=== PATIENT | male | born 2000 | race Hispanic/Latino ===

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

== ENCOUNTER 2019-08-13 21:30 | Emergency (ER) | payer BC ==
[~2019-08-13] VITALS: Ht 180.3 cm; Wt 90.9 kg
[2019-08-13 22:07] LABS: HEMATOCRIT 47.9 % (39.0-50.0); HEMOGLOBIN 16.7 g/dl (14.0-18.0); IMMATURE GRANULOCYTES 0.5 % (0.0-5.0); MEAN CELL VOLUME 89.5 fL CALC (80.0-100.0); MEAN CORPUSCULAR HGB 31.2 pG CALC (26.0-32.0); MEAN CORPUSCULAR HGB CONC 34.9 g/L CALC (32.0-36.0); NEUT# 6.23 thou/uL (1.82-7.42); RED BLOOD COUNT 5.35 mill/uL (4.70-6.10); RED CELL DISTRI WIDTH 12.2 % (11.5-15.5)
[2019-08-13 22:19] LABS: ALBUMIN 4.8 g/dL (3.2-5.0); ALKALINE PHOSPHATASE 126 u/l (38-126); ANION GAP 18 (6-22 (CALC)); BILIRUBIN, TOTAL 1.5 mg/dL (0.0-1.4); BUN 21 mg/dL (8-21); BUN/CREATININE RATIO 21 (12-20 (CALC)); CARBON DIOXIDE 23 mmol/l (22-30); CHLORIDE 101 mmol/l (95-108); GFR > 60 ML/MIN (>=60 (CALC)); GFR FOR AFR.AMER. > 60 ML/MIN (>=60 (CALC)); POTASSIUM 3.8 mmol/l (3.5-5.1); SGOT/AST 41 u/l (17-59); SODIUM 138 mmol/l (137-146); TOTAL PROTEIN 8.6 g/dL (6.3-8.2)
[2019-08-13 23:27] LABS: C. DIFFICILE TOXIN A&B NEGATIVE (NEGATIVE)
[2019-08-14] MEDS ORDERED: LOMOTIL2.5 MG PO (00:09)
[2019-08-14] MEDS ORDERED: PHENERGAN25 MG/TAB PO (00:09)
[2019-08-14 00:20] VITALS: BP 130/66
== END 2019-08-14 00:25 | disposition home or self-care (01) | DRG 392 ==
LOC: ED 21:30
PROVIDERS: Family Medicine
DX: A08.4 Viral intestinal infection, unspecified (principal)

== ENCOUNTER 2020-06-03 06:12 | Emergency (ER) | payer BC ==
[~2020-06-03] VITALS: Ht 180.3 cm; Wt 80.0 kg
[~2020-06-03 06:12] MED LIST changes: +LOMOTIL2.5 MG PO; +PHENERGAN25 MG/TAB PO
[2020-06-03] MEDS ORDERED: NAPROXEN500 MG PO (07:08)
[2020-06-03 07:26] VITALS: BP 130/64
== END 2020-06-03 07:29 | disposition home or self-care (01) | DRG 563 ==
LOC: ED 06:12
DX: S93.401A Sprain of unspecified ligament of right ankle, initial encounter (principal); X50.0XXA Overexertion from strenuous movement or load, initial encounter

== ENCOUNTER 2020-10-24 18:27 | Emergency (ER) | payer BC ==
[~2020-10-24] VITALS: Ht 180.3 cm; Wt 86.3 kg
[~2020-10-24 18:27] MED LIST changes: +NAPROXEN500 MG PO
[2020-10-24 19:45] VITALS: BP 137/76
== END 2020-10-24 19:36 | disposition home or self-care (01) | DRG 179 ==
LOC: ED 18:27
DX: U07.1 COVID-19 (principal); R52 Pain, unspecified

== ENCOUNTER 2020-11-12 22:24 | Emergency (ER) | payer BC ==
[~2020-11-12] VITALS: Ht 180.3 cm; Wt 88.0 kg
[2020-11-12 23:07] LABS: HEMATOCRIT 42.2 % (39.0-50.0); HEMOGLOBIN 14.4 g/dl (14.0-18.0); IMMATURE GRANULOCYTES 0.7 % (0.0-5.0); MEAN CELL VOLUME 91.7 fL CALC (80.0-100.0); MEAN CORPUSCULAR HGB 31.3 pG CALC (26.0-32.0); MEAN CORPUSCULAR HGB CONC 34.1 g/dL CAL (32.0-36.0); NEUT# 6.07 thou/uL (1.82-7.42); RED BLOOD COUNT 4.6 mill/uL (4.70-6.10); RED CELL DISTRI WIDTH 12.3 % (11.5-15.5)
[2020-11-12] MEDS ORDERED: VOLTAREN - GENE75 MG PO (23:40)
[2020-11-12 23:47] VITALS: BP 120/61
== END 2020-11-12 23:47 | disposition home or self-care (01) | DRG 313 ==
LOC: ED 22:24
PROVIDERS: Family Medicine
DX: R07.89 Other chest pain (principal); Z86.16 Personal history of COVID-19

== ENCOUNTER 2022-02-16 03:56 | Emergency (ER) | payer BC ==
[~2022-02-16] VITALS: Ht 180.3 cm; Wt 93.0 kg
[~2022-02-16 03:56] MED LIST changes: +VOLTAREN - GENE75 MG PO
[2022-02-16 04:08] VITALS: BP 138/76
[2022-02-16 04:30] VITALS: BP 128/72
[2022-02-16 04:50] LABS: HEMATOCRIT 46.4 % (39.0-50.0); HEMOGLOBIN 15.9 g/dl (14.0-18.0); IMMATURE GRANULOCYTES 0.6 % (0.0-5.0); MEAN CELL VOLUME 92.2 fL CALC (80.0-100.0); MEAN CORPUSCULAR HGB 31.6 pG CALC (26.0-32.0); MEAN CORPUSCULAR HGB CONC 34.3 g/dL CAL (32.0-36.0); NEUT# 3.62 thou/uL (1.82-7.42); RED BLOOD COUNT 5.03 mill/uL (4.70-6.10)
[2022-02-16 05:00] VITALS: BP 116/75
[2022-02-16 05:04] LABS: ALBUMIN 4.3 g/dL (3.2-5.0); ALKALINE PHOSPHATASE 102 u/l (38-126); BILIRUBIN, TOTAL 0.9 mg/dL (0.0-1.4); BUN 19 mg/dL (9-20); BUN/CREATININE RATIO 19 (12-20 (CALC)); CHLORIDE 106 mmol/l (95-108); GFR FOR AFR.AMER. > 60 ML/MIN (>=60 (CALC)); GFR OTHER RACES > 60 ML/MIN (>=60 (CALC)); POTASSIUM 3.7 mmol/l (3.5-5.1); SGOT/AST 30 u/l (17-59); SODIUM 142 mmol/l (137-146); TOTAL PROTEIN 7.5 g/dL (6.3-8.2)
[2022-02-16 05:06] LABS: ANION GAP 12 (6-22 (CALC)); CARBON DIOXIDE 28 mmol/l (22-30)
[2022-02-16 05:15] LABS: MYOGLOBIN 22 ng/mL (0 - 121)
[2022-02-16] MEDS ORDERED: KEFLEX500 MG PO (05:29)
[2022-02-16 05:30] VITALS: BP 131/89
[2022-02-16 05:40] VITALS: BP 131/89
[2022-02-18] MEDS ORDERED: KEFLEX500 MG PO (16:06)
== END 2022-02-16 05:54 | disposition home or self-care (01) | DRG 153 ==
LOC: ED 03:56
PROVIDERS: Emergency Medicine
DX: J06.9 Acute upper respiratory infection, unspecified (principal); Z20.822 Contact with and (suspected) exposure to COVID-19; Z86.16 Personal history of COVID-19